=== PATIENT | male | born 2000 | race African-American/Black ===

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

== ENCOUNTER 2022-02-05 23:45 | Emergency (ER) | payer OTHER, MEDICAID ==
[~2022-02-05] VITALS: Ht 182.9 cm; Wt 88.5 kg
[2022-02-06 00:31] VITALS: BP 119/69
== END 2022-02-06 03:18 | disposition left against medical advice (07) ==
LOC: ER 23:45
DX: R50.9 Fever, unspecified (principal); R51.9 Headache, unspecified; R20.0 Anesthesia of skin; Z53.21 Procedure and treatment not carried out due to patient leaving prior to being seen by health care provider
CPT/HCPCS: 71045

== ENCOUNTER 2022-03-04 17:21 | Emergency (ER) | payer OTHER ==
[~2022-03-04] VITALS: Ht 182.9 cm; Wt 89.8 kg
[2022-03-04] MEDS ORDERED: AZIT1POW PO (19:08)
[2022-03-04 20:28] VITALS: BP 126/76
== END 2022-03-04 20:31 | disposition home or self-care (01) ==
LOC: ER 17:21
DX: J20.9 Acute bronchitis, unspecified (principal); F12.10 Cannabis abuse, uncomplicated
CPT/HCPCS: 71046